=== PATIENT | female | born 1990 | race Caucasian/White ===

== ENCOUNTER 2016-12-26 11:44 | Inpatient (IN) | payer BC, OTHER ==
[2016-12-26] MEDS ORDERED: Azithromycin TAB* 250 MG PO ONE (11:50)
[2016-12-26] MEDS ORDERED: Betamethasone INJ* 6 MG/ML 5 ML VIAL (30 MG) IM ONE (11:54)
[2016-12-26 12:41] LABS: Hematocrit 39 % (35-47); Hemoglobin 12.9 g/dl (12.0-16.0); Mean Corpuscular HGB Conc 34 g/dl (31-36); Mean Corpuscular Hemoglobin 31 pg (27-31); Mean Corpuscular Volume 91 fL (80-97); Mean Platelet Volume 10 um3 (7.4-10.4); Red Blood Count 4.22 10^6/ul (4.0-5.4); Red Cell Distribution Width 13 % (10.5-15); White Blood Count 12.8 10^3/ul (3.5-10.8)
[2016-12-26 12:43] LABS: Add Diff/Slide Review? Slide Review Added; Comments Flag Yes
[2016-12-26 13:21] LABS: Urine Bilirubin Negative (Negative); Urine Glucose Negative (Negative); Urine Nitrite Negative (Negative)
[2016-12-27] MEDS ORDERED: Acetaminophen TAB* 325 MG PO PRN (11:31)
[2016-12-27] MEDS ORDERED: Dibucaine 1% 28.35 GM TUBE PR PRN (11:31)
[2016-12-27] MEDS ORDERED: Witch Hazel PAD* JAR TOPICAL PRN (11:31)
[2016-12-27] MEDS ORDERED: Ibuprofen TAB* 600 MG PO PRN (11:31)
[2016-12-27] MEDS ORDERED: Glycerin ADULT SUPP PR PRN (11:31)
[2016-12-27] MEDS ORDERED: Oxytocin in LR* 20 UNITS/1,000 ML BAG IVPB SCH (12:00)
[2016-12-27] MEDS ORDERED: OXYTOCIN* 10 UNITS/ML 1 ML VIAL ONE (12:02)
[2016-12-27] MEDS ORDERED: Simethicone CHEW TAB* 80 MG PO SCH (12:30)
[2016-12-27] MEDS: Docusate CAP* 100 MG PO SCH ×2 (16:01→21:00)
[2016-12-28 06:33] LABS: Hematocrit 33 % (35-47); Hemoglobin 11.2 g/dl (12.0-16.0); Mean Corpuscular HGB Conc 34 g/dl (31-36); Mean Corpuscular Hemoglobin 32 pg (27-31); Mean Corpuscular Volume 92 fL (80-97); Mean Platelet Volume 9 um3 (7.4-10.4); Red Blood Count 3.54 10^6/ul (4.0-5.4); Red Cell Distribution Width 14 % (10.5-15); White Blood Count 10.7 10^3/ul (3.5-10.8)
[2016-12-28] MEDS ORDERED: Ferrous Gluconate TAB* 324 MG TAB PO SCH (09:00)
[2016-12-28] MEDS: Docusate CAP* 100 MG PO SCH ×3 (09:07→21:16)
[2016-12-29 08:26] VITALS: BP 111/78
== END 2016-12-29 11:30 | disposition home or self-care (01) | DRG 560 ==
LOC: MCHOBOUT 11:44 → MCHOB 11:45
PROVIDERS: ADMIT Obstetrics & Gynecology; ATTEND Obstetrics & Gynecology
PROC: 10E0XZZ Delivery of Products of Conception, External Approach (ICD-10-PCS; principal; 2016-12-27)
PROC: 10907ZC Drainage of Amniotic Fluid, Therapeutic from Products of Conception, Via Natural or Artificial Opening (ICD-10-PCS; 2016-12-27)
PROC: 4A1HXCZ Monitoring of Products of Conception, Cardiac Rate, External Approach (ICD-10-PCS; 2016-12-27)
PROC: 0HQ9XZZ Repair Perineum Skin, External Approach (ICD-10-PCS; 2016-12-27)
DX: O60.14X0 Preterm labor third trimester with preterm delivery third trimester, not applicable or unspecified (principal); O44.43 Low lying placenta NOS or without hemorrhage, third trimester; O99.334 Smoking (tobacco) complicating childbirth; O42.113 Preterm premature rupture of membranes, onset of labor more than 24 hours following rupture, third trimester; N83.292 Other ovarian cyst, left side; O70.0 First degree perineal laceration during delivery; Z37.0 Single live birth; Z3A.33 33 weeks gestation of pregnancy
CPT/HCPCS: 36415; 81003; 85025; 86850; 86900; 86901; 87070; 87086; 88307; A9270-GY; J0290; J0702; J2590

== ENCOUNTER 2018-02-16 08:38 | Emergency (ER) | payer BC, OTHER ==
[2018-02-16 08:45] VITALS: BP 133/95
--- NOTE | 2018-02-16 09:52 | UC ---
Complaint Female HPI - HPI Summary HPI Summary: In Room Note: The patient is a 27 y/o F presenting to [facility] with a chief complaint of a cyst on the right outer labia for the last four days with gradual worsening. She states that is has become the size of a ping-pong ball. The aching pain is currently rated 8/10 in severity. She has had Bartholin's cysts like this before , two of which she has had drained by [facility] in 2011 and at her [facility] in 2014. Other cysts she has had she relieved herself by taking a warm bath, but this has not helped relive the swelling during this episode. She additionally c/o fever (100.5F). LNMP: 02/10/18. Note: Vital signs stable: 133/95 BP. Patient is not on antihypertensive medication. Visit history: noncontributory to present complaint. Nurse's Note: cyst inner labial near vagina x 4 days - History Of Current Complaint Chief Complaint: UCGU Stated Complaint: FEMALE PERSONAL Time Seen by Provider: 02/16/18 09:44 Hx Obtained From: Patient Hx Last Menstrual Period: 02/10/18 Onset/Duration: Gradual Onset - gradual worsening, Lasting Days - starting four days ago, Still Present Timing: Constant, Lasting Days Severity Initially: Mild Severity Currently: Moderate Pain Intensity: 8 Pain Scale Used: 0-10 Numeric Radiates to: none Aggravating Factor(s): Nothing Alleviating Factor(s): Nothing Associated Signs And Symptoms: Positive: Fever - 100.5F - Allergies/Home Medications Allergies/Adverse Reactions: Allergies Allergy/AdvReac Type Severity Reaction Status Date / Time No Known Allergies Allergy Verified 02/16/18 08:46 PMH/Surg Hx/FS Hx/Imm Hx Endocrine History: Other Other Endocrine History: High iron/pure cell aplagia Cardiovascular History: Other Other Cardiovascular History: NEGATIVE: HTN - Surgical History Surgical History: Yes Surgery Procedure, Year, and Place: APPY at about age 12yrs. 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; - Family History Known Family History: Positive: Hypertension - Social History Alcohol Use: Rare Substance Use Type: None Smoking Status (MU): Light Every Day Tobacco Smoker Type: Cigarettes Amount Used/How Often: 1/2 PACK DAILY Review of Systems Constitutional: Fever - 100.5F Skin: Negative Eyes: Negative ENT: Negative Respiratory: Negative Cardiovascular: Negative Gastrointestinal: Negative Genitourinary: Other - cyst on the right outer labia of the vagina Motor: Negative Neurovascular: Negative Musculoskeletal: Negative Neurological: Negative Psychological: Negative All Other Systems Reviewed And Are Negative: Yes - Comments Additional Review of Systems Comments: POSITIVE: cyst on the right outer labia of the vagina, fever (100.5F) Physical Exam - Summary Physical Exam Summary: Appearance: The patient is well-appearing, is in no pain distress, and is well- nourished. Eyes: Conjunctiva are clear. ENT: The hearing is grossly normal, the pharynx is normal, and the TMs are normal. There is no muffled or hoarse voice. Neck: The neck is supple and there is no lymphadenopathy. Respiratory: The chest is nontender. The lungs are clear, there are normal breath sounds, and there is no respiratory distress. Cardiovascular: Heart is regular rate and rhythm. There is no murmur. Abdomen: The abdomen is soft and nontender. There is no organomegaly. Bowel sounds: present Vaginal Exam: Examination of the vagina shows a 2cm soft, tender cystic-like structure on the border of the vaginal opening. No evident cellulitis ascending from the site. Musculoskeletal: Strength is intact. The patient moves all extremities. Neurological: The patient is alert. Motor and sensory examination grossly intact. Psychological: The patient displays age appropriate behavior Skin: Negative for rashes. Triage Information Reviewed: Yes Vital Signs: Initial Vital Signs Temp 98.2 F 02/16/18 08:41 Pulse 118 02/16/18 08:41 Resp 20 02/16/18 08:41 BP 133/95 02/16/18 08:41 Pulse Ox 100 02/16/18 08:41 Vital Signs Reviewed: Yes Procedures - Incision and Drainage Right Groin Site: right perivaginal area Anesthesia: Lidocaine - with epinephrine Instrument(s): Scalpel - 11 blade Packing: Gauze - iodoform Complaint Female Dx - Course Course Of Treatment: 27 y/o F with hx of two bartlitsn to [facility] perivaginal area. Cystic-like infected lesion along the border of the vaginal opening. A 12 point review of systems was completed and significantly positive for: cyst on the right outer labia of the vagina, fever (100.5F). The remainder of the review was negative except as stated above in the HPI. The perivaginal area was cleaned and prepped. The abscess was anesthetized with lidocaine with epinephrine. A 0.75cm incision was made with an 11-blade, and copious amounts of pus. The incision was cultured. The incision was packed with iodoform guaze. Area was dressed. Good hemostasis. She will be given cephalexin. Patient has been given an antibiotic because of findings on physical examination and health history. The risks and benefits of antibiotic treatment have been discussed and patient has voiced understanding of these risks including the possibility of developing clostridium difficile enterocolitis. My diagnosis is Bartholian cyst on the right border of vagina. Medications have been included in the original chart and reviewed. Patient has a prehypertensive reading of 133/95 and will follow up with her PCP in a week. - Differential Dx/Diagnosis Differential Diagnosis/HQI/PQRI: Other Provider Diagnoses: Bartholian cyst on the right border of vagina Discharge - Sign-Out/Discharge Documenting (check all that apply): Patient Departure - Patient will be disharged home. All imaging exams completed and their final reports reviewed: No Studies - Discharge Plan Condition: Stable Disposition: HOME Prescriptions: Cephalexin CAP* [Keflex 500 CAP*] 500 mg PO TID #30 cap Patient Education Materials: Bartholin Cyst (ED), Incision and Drainage (ED) Referrals: No Primary Care Phys,NOPCP [Primary Care Provider] - [facility] [place] [facility] [Outside] - 1 Week Additional Instructions: Your blood pressure reading today was 133/95, indicating PREHYPERTENSION. Follow -up with your primary care provider within 4 weeks for blood pressure readings and further evaluation. Follow up with your doctor to recheck your blood pressure reading within the next 4 weeks. PLEASE SEEK CARE AT THE EMERGENCY DEPARTMENT IF SYMPTOMS WORSEN OR IF NEW SYMPTOMS DEVELOP. FOLLOW UP WITH YOUR PRIMARY CARE PHYSICIAN. WE DISCUSSED: TAKE THE ANTIBIOTIC, 3 TIMES A DAY. USE WARM MOIST HEAT TO THE AREA EVERY TWO HOURS UNTIL THE PAIN GOES AWAY. RECHECK IN 48 HOURS; TAKE OUT DRAIN AT THAT TIME. - Billing Disposition and Condition Condition: STABLE Disposition: Home - Attestation Statements Document Initiated by Jean Claude: Yes Documenting Scribe: Kiara Arroyo Provider For Whom Jean Claude is Documenting (Include Credential): MD Jean Claude Armendariz Attestation: IKiara scribed for Dr. Abhilash Baker MD on 02/16/18 at 1506. Scribe Documentation Reviewed: Yes Provider Attestation: The documentation as recorded by the scribe, Kiara Arroyo accurately reflects the service I personally performed and the decisions made by me, Dr. Abhilash Baker MD
[2018-02-16] MEDS ORDERED: Lidocaine 2% W/EPI 1:100,000* 20 ML MDV INJ ONE (10:31)
--- NOTE | 2018-02-18 19:55 | UC ---
- Progress Note Progress Note: MRSA neg 2+ H. Influenza pt was started on cephalexin, wound I+D Please call pt for update if improved, no change if not improve, will change to amox desi 02/18/18 Discharge - Sign-Out/Discharge Documenting (check all that apply): Post-Discharge Follow Up All imaging exams completed and their final reports reviewed: No Studies - Discharge Plan Condition: Stable Disposition: HOME Prescriptions: Cephalexin CAP* [Keflex 500 CAP*] 500 mg PO TID #30 cap Patient Education Materials: Bartholin Cyst (ED), Incision and Drainage (ED) Referrals: [facility] [Outside] - 1 Week No Primary Care Phys,NOPCP [Primary Care Provider] - Additional Instructions: Your blood pressure reading today was 133/95, indicating PREHYPERTENSION. Follow -up with your primary care provider within 4 weeks for blood pressure readings and further evaluation. Follow up with your doctor to recheck your blood pressure reading within the next 4 weeks. PLEASE SEEK CARE AT THE EMERGENCY DEPARTMENT IF SYMPTOMS WORSEN OR IF NEW SYMPTOMS DEVELOP. FOLLOW UP WITH YOUR PRIMARY CARE PHYSICIAN. WE DISCUSSED: TAKE THE ANTIBIOTIC, 3 TIMES A DAY. USE WARM MOIST HEAT TO THE AREA EVERY TWO HOURS UNTIL THE PAIN GOES AWAY. RECHECK IN 48 HOURS; TAKE OUT DRAIN AT THAT TIME. - Billing Disposition and Condition Condition: STABLE Disposition: Home
== END 2018-02-16 11:15 | disposition home or self-care (01) ==
LOC: UCEAST 08:38
DX: N75.0 Cyst of Bartholin's gland (principal); F17.210 Nicotine dependence, cigarettes, uncomplicated
CPT/HCPCS: 56420; 87070; 87077; 87185; 87205; 87640; 87641; 99212; G0463

== ENCOUNTER 2020-11-03 18:35 | Inpatient (IN) ==
[2020-11-03] MEDS ORDERED: Oxytocin in LR 20 UNITS/1,000 ML BAG IVPB ONE (18:54)
[2020-11-03 19:13] LABS: ABS Basophils 0.1 10^3/ul (0-0.2); ABS Eosinophils 0.1 10^3/ul (0-0.6); ABS Lymphocytes 1.8 10^3/ul (1.0-4.8); ABS Neutrophils 13.1 10^3/ul (1.5-7.7); Eosinophil % 0.6 %; Hematocrit 34 % (35-47); Hemoglobin 11.8 g/dL (12.0-16.0); Lymphocyte % 11.3 %; Mean Corpuscular HGB Conc 35 g/dL (31-36); Mean Corpuscular Hemoglobin 29 pg (27-31); Mean Corpuscular Volume 83 fL (80-97); Mean Platelet Volume 10.1 fL (7.4-10.4); Platelet Count 279 10^3/uL (150-450); Red Blood Count 4.06 10^6 /uL (3.70-4.87); Red Cell Distribution Width 14 % (10-15)
[2020-11-03] MEDS ORDERED: Glycerin ADULT 2.4 gm SUPP PR PRN (19:17)
[2020-11-03] MEDS ORDERED: Dibucaine 1% OINT 28.35 GM TUBE PR PRN (19:17)
[2020-11-03] MEDS ORDERED: Witch Hazel PAD JAR TOPICAL PRN (19:17)
[2020-11-03] MEDS ORDERED: Buffered Lidocaine 1% SYRIN 1 ml INTRADERM ONE (19:18)
[2020-11-03] MEDS ORDERED: Oxytocin in LR 20 UNITS/1,000 ML BAG IVPB SCH (20:00)
[2020-11-03] MEDS ORDERED: Lactated Ringers 1000 ml BAG 1,000 ML IV SCH (20:00)
[2020-11-03 22:46] LABS: Urine Benzodiazepine Screen None Detected (None Detect); Urine Cannabinoids Screen None Detected (None Detect); Urine Opiates Screen None Detected (None Detect)
[2020-11-04 07:14] LABS: ABS Eosinophils 0.1 10^3/ul (0-0.6); ABS Lymphocytes 1.1 10^3/ul (1.0-4.8); ABS Monocytes 0.8 10^3/ul (0-0.8); ABS Neutrophils 9.4 10^3/ul (1.5-7.7); Eosinophil % 0.6 %; Hematocrit 30 % (35-47); Hemoglobin 10.4 g/dL (12.0-16.0); Lymphocyte % 9.8 %; Mean Corpuscular HGB Conc 34 g/dL (31-36); Mean Corpuscular Hemoglobin 28 pg (27-31); Mean Corpuscular Volume 83 fL (80-97); Mean Platelet Volume 9.2 fL (7.4-10.4); Platelet Count 200 10^3/uL (150-450); Red Blood Count 3.66 10^6 /uL (3.70-4.87); Red Cell Distribution Width 14 % (10-15); White Blood Count 11.4 10^3/uL (3.5-10.8)
[2020-11-05 07:42] VITALS: BP 129/80
== END 2020-11-05 20:00 | disposition home or self-care (01) | DRG 560 ==
LOC: MCHOBOUT 18:35 → MERGE 18:41 → MCHOB 18:41
PROVIDERS: ADMIT Obstetrics & Gynecology; ATTEND Obstetrics & Gynecology